=== PATIENT | female | born 1975 | race Caucasian/White ===

== ENCOUNTER 2018-08-01 15:10 | Outpatient (REF) | payer MEDICAID, SELFPAY | END 2018-08-01 15:30 | LOC: NCHCN 15:10 | PROVIDERS: PCP Internal Medicine; Visit Provider Nurse Practitioner Family | DX: N89.8 Other specified noninflammatory disorders of vagina (principal); J02.9 Acute pharyngitis, unspecified | CPT/HCPCS: 87070; 87480; 87510; 87660 ==

== ENCOUNTER 2019-04-29 15:02 | Outpatient (REF) | payer MEDICAID, SELFPAY ==
[2019-04-29 19:50] LABS: TSH 2.58 uIU/mL (0.358-3.74)
[2019-04-29 21:17] LABS: Hemoglobin A1C 6.4 % (4.5-6.2)
[2019-05-01 09:46] LABS: FSH 5.7 mIU/ml; LH 1.4 mIU/ml
== END 2019-04-29 15:22 ==
LOC: NCHCN 15:02
PROVIDERS: PCP Internal Medicine; Visit Provider Nurse Practitioner Family
DX: R73.9 Hyperglycemia, unspecified (principal)
CPT/HCPCS: 83001; 83002; 83036; 84443

== ENCOUNTER 2019-06-06 10:52 | Outpatient (REF) | payer MEDICAID, SELFPAY ==
[2019-06-06 20:06] LABS: HCT 42.1 % (36.0-46.0); HGB 14.3 g/dL (12.0-15.5); Mean Corpuscular Hemoglobin 29.8 pg (27.0-33.0); Mean Corpuscular Volume 87.7 fL (80-95); Mean Platelet Volume 11.4 fL (8.0-11.0); Platelet Count 233 x1000/uL (130-400); RBC Distribution Width 12.4 % (11.7-14.6); White Blood Cell Count 8.37 k/cumm (4.4-10.8)
== END 2019-06-06 11:12 ==
LOC: NCHCN 10:52
PROVIDERS: PCP Internal Medicine; Visit Provider Nurse Practitioner Family
DX: R10.32 Left lower quadrant pain (principal)
CPT/HCPCS: 85027

== ENCOUNTER 2019-08-12 16:38 | Outpatient (REF) | payer MEDICAID, SELFPAY ==
[2019-08-12 19:21] LABS: C-Reactive Protein 0.31 mg/dL (0.0-0.3)
[2019-08-12 19:41] LABS: Hemoglobin A1C 6.5 % (4.5-6.2)
[2019-08-12 21:29] LABS: ESR 18 mm/hr (0-20)
== END 2019-08-12 16:58 ==
LOC: NCHCN 16:38
PROVIDERS: PCP Internal Medicine; Visit Provider Nurse Practitioner Family
DX: R07.89 Other chest pain (principal); R73.03 Prediabetes
CPT/HCPCS: 85652; 83036; 86140

== ENCOUNTER 2020-05-12 12:36 | Outpatient (REF) | payer MEDICAID, SELFPAY ==
[2020-05-12 21:05] LABS: Hemoglobin A1C 6.1 % (3.8-5.6)
== END 2020-05-12 12:56 ==
LOC: NCHCN 12:36
PROVIDERS: PCP Internal Medicine; Visit Provider Nurse Practitioner Family
DX: R73.03 Prediabetes (principal)
CPT/HCPCS: 83036

== ENCOUNTER 2020-11-10 15:29 | Outpatient (REF) | payer MEDICAID, SELFPAY ==
[2020-11-10 21:10] LABS: Hemoglobin A1C 6.4 % (<5.7)
== END 2020-11-10 15:49 ==
LOC: NCHCN 15:29
PROVIDERS: PCP Internal Medicine; Visit Provider Nurse Practitioner Family
DX: R73.03 Prediabetes (principal)
CPT/HCPCS: 83036

== ENCOUNTER 2021-03-14 18:34 | Outpatient (REF) | payer MEDICAID, SELFPAY ==
[2021-03-14 20:01] LABS: Hemoglobin A1C 6.4 % (<5.7)
[2021-03-14 20:23] LABS: Vitamin D 25 Total 14.8 ng/mL (30-100)
== END 2021-03-14 18:35 | disposition home or self-care (01) ==
LOC: NCHCN 18:34
PROVIDERS: PCP Internal Medicine; Visit Provider Nurse Practitioner Family
DX: R73.03 Prediabetes (principal); E55.9 Vitamin D deficiency, unspecified; F41.8 Other specified anxiety disorders
CPT/HCPCS: 82306; 83036

== ENCOUNTER 2021-08-04 09:21 | Outpatient (REF) | payer MEDICAID, SELFPAY ==
[2021-08-04 19:27] LABS: Hemoglobin A1C 6.6 % (<5.7)
[2021-08-04 19:39] LABS: ALT 37 U/L (14-59); AST 21 U/L (15-37); Albumin 3.8 g/dL (3.4-5.0); Alkaline Phosphatase 58 U/L (46-116); Anion Gap 8.6 mmol/L (3-11); BUN 8 mg/dL (7-18); Bilirubin, Total 0.4 mg/dL (0.2-1.0); CO2 27.4 mmol/L (21.0-32.0); Calcium 9.7 mg/dL (8.5-10.1); Chloride 105 mmol/L (98-107); Cholesterol 195 mg/dL (<200); Glucose 149 mg/dL (74-106); HDL Cholesterol 30 mg/dL (40-60); Potassium 4.2 mmol/L (3.5-5.1); Sodium 141 mmol/L (136-145); TSH (W/Ref FT4) 3.23 uIU/mL (0.36-3.74); Total Protein 6.9 g/dL (6.4-8.2); Triglyceride 421 mg/dL (<150)
[2021-08-04 19:54] LABS: Vitamin D 25 Total 31.5 ng/mL (30-100)
[2021-08-04 20:40] LABS: LDL CHOLESTEROL 92 mg/dL (<100)
== END 2021-08-04 09:22 | disposition home or self-care (01) ==
LOC: NCHCN 09:21
PROVIDERS: PCP Internal Medicine; Visit Provider Nurse Practitioner Family
DX: E78.1 Pure hyperglyceridemia (principal); R73.03 Prediabetes; E04.1 Nontoxic single thyroid nodule; E55.9 Vitamin D deficiency, unspecified
CPT/HCPCS: 80053; 80061; 82306; 83721; 83036; 84443

== ENCOUNTER 2021-11-14 17:19 | Outpatient (REF) | payer MEDICAID, SELFPAY ==
[2021-11-16 09:01] LABS: COVID-19 RT-PCR UVMMC Result Negative (Negative)
== END 2021-11-14 17:20 | disposition home or self-care (01) ==
LOC: NCHCN 17:19
PROVIDERS: PCP Internal Medicine; Visit Provider Nurse Practitioner Family
DX: Z20.822 Contact with and (suspected) exposure to COVID-19 (principal); R07.89 Other chest pain
CPT/HCPCS: U0003

== ENCOUNTER 2021-12-06 18:13 | Outpatient (REF) | payer MEDICAID, SELFPAY | END 2021-12-06 18:14 | disposition home or self-care (01) | LOC: NCHCN 18:13 | PROVIDERS: PCP Internal Medicine; Visit Provider Nurse Practitioner Family | DX: R43.9 Unspecified disturbances of smell and taste (principal) | CPT/HCPCS: 87070 ==

== ENCOUNTER 2022-01-09 14:51 | Outpatient (REF) | payer MEDICAID, SELFPAY ==
[2022-01-09 20:21] LABS: Hemoglobin A1C 6.6 % (<5.7)
[2022-01-09 20:27] LABS: TSH 1.86 uIU/mL (0.36-3.74)
== END 2022-01-09 14:52 | disposition home or self-care (01) ==
LOC: NCHCN 14:51
PROVIDERS: PCP Internal Medicine; Visit Provider Nurse Practitioner Family
DX: E04.1 Nontoxic single thyroid nodule (principal); E78.1 Pure hyperglyceridemia; R73.03 Prediabetes
CPT/HCPCS: 83036; 84439; 84443

== ENCOUNTER 2022-02-24 20:00 | Outpatient (REF) | payer MEDICAID, SELFPAY ==
[2022-02-24 19:52] LABS: Calculated LDL 102 mg/dL (<100); Cholesterol 196 mg/dL (<200); HDL Cholesterol 31 mg/dL (40-60); Triglyceride 319 mg/dL (<150)
[2022-02-27 06:24] LABS: Vitamin D 25 Total 32.7 ng/mL (30-100)
== END 2022-02-24 20:01 | disposition home or self-care (01) ==
LOC: NCHCN 20:00
PROVIDERS: PCP Internal Medicine; Visit Provider Nurse Practitioner Family
DX: E55.9 Vitamin D deficiency, unspecified (principal); E78.1 Pure hyperglyceridemia
CPT/HCPCS: 80061; 82306

== ENCOUNTER 2022-11-21 17:55 | Outpatient (REF) | payer MEDICAID, SELFPAY ==
[2022-11-21 19:35] LABS: COMMENT (LAB VIEW ONLY) 192.18 mg/dL; Microalb ug/mg Crea 9.2 ug/mg Cr
[2022-11-21 21:12] LABS: Bilirubin Negative (Negative); Blood Negative (Negative); Clarity Cloudy (Clear); Glucose Negative (Negative); Ketones Negative (Negative); Leukocyte Esterase Trace (Negative); Nitrite Negative (Negative); Specific Gravity >= 1.030 (1.005-1.025); Urobilinogen 0.2 EU/dL (Up TO 0.2); pH 5.5 (5-8)
[2022-11-21 21:14] LABS: Bacteria Many HPF (Negative)
[2022-11-21 21:15] LABS: C & S Indicated? Yes; Crystals Many Amorphous HPF (Negative)
== END 2022-11-21 17:56 | disposition home or self-care (01) ==
LOC: NCHCN 17:55
PROVIDERS: PCP Internal Medicine; Visit Provider Nurse Practitioner Family
DX: R80.9 Proteinuria, unspecified (principal)
CPT/HCPCS: 81003; 81015; 82043; 82570; 87086

== ENCOUNTER 2023-02-01 16:39 | Outpatient (REF) | payer MEDICAID, SELFPAY | END 2023-02-01 16:40 | disposition home or self-care (01) | LOC: NCHCN 16:39 | PROVIDERS: PCP Internal Medicine; Visit Provider Nurse Practitioner Family | DX: J02.9 Acute pharyngitis, unspecified (principal) | CPT/HCPCS: 87070 ==

== ENCOUNTER 2023-02-06 14:08 | Outpatient (REF) | payer MEDICAID, SELFPAY ==
[2023-02-06 12:10] LABS: Abs Immature Grans 0.06 10^3/uL (0.0-0.06); Absolute Eosinophil Count 0.12 10^3/uL (0.0-0.7); Absolute Monocyte Count 0.76 10^3/uL (0.1-0.8); Basophils % 0.3; HCT 42.7 % (36.0-46.0); HGB 14.4 g/dL (11.2-15.7); Immature Grans % 0.5; Lymphocytes % 16.3; MCH 29.5 pg (27.0-33.0); MCHC 33.7 % (32.0-36.0); MCV 88 fL (80-95); MPV 10.5 fL (8.0-11.0); Monocytes % 6.6; Neutrophils % 75.3; Platelet Count 206 10^3/uL (130-400); RBC 4.88 10^6/uL (3.93-5.22); RDW 12.6 % (11.7-14.6); RDW-SD 40.1 fL
[2023-02-06 12:17] LABS: Absolute Basophil Count 0.03 10^3/uL (0.0-0.2); Absolute Lymphocyte Count 1.87 10^3/uL (1.2-3.4); Absolute Neutrophil Count 8.66 10^3/uL (1.2-6.7)
[2023-02-07 11:19] LABS: IgE <2 IU/mL (<158)
[2023-02-08 12:28] LABS: Aspergillus Fumigatus IgE <0.35 kU/L; Bermuda Grass IgE <0.35 kU/L; Canary Feathers IgE <0.35 kU/L; Candida Albicans (Monilia),IgE <0.35 kU/L; Cat Epithelium IgE <0.35 kU/L; Cedar, IgE <0.35 kU/L; Chicken Feathers IgE <0.35 kU/L; Cockroach IgE <0.35 kU/L; D Farinae IgE <0.35 kU/L; D Pteronyssinus IgE <0.35 kU/L; Dog Dander IgE <0.35 kU/L; False Ragweed, IgE <0.35 kU/L; Finch Feathers, IgE <0.35 kU/L; Short Ragweed IgE <0.35 kU/L; Silver Birch IgE <0.35 kU/L
[2023-02-08 12:43] LABS: Douglas Fir, IgE <0.35 kU/L; Spruce, IgE <0.35 kU/L
[2023-02-15 08:57] LABS: Parrot Australian Feathers IgE <0.10 kU/L
== END 2023-02-06 14:09 | disposition home or self-care (01) ==
LOC: LBN 14:08
PROVIDERS: PCP Internal Medicine; Visit Provider Physician Assistant Surgical
DX: J45.50 Severe persistent asthma, uncomplicated (principal); Z01.82 Encounter for allergy testing
CPT/HCPCS: 86003; 82785; 84307; 85025; 86592

== ENCOUNTER 2023-03-27 18:49 | Outpatient (REF) | payer MEDICAID, SELFPAY ==
[2023-03-27 19:49] LABS: ALT 38 U/L (14-59); AST 24 U/L (15-37); Alkaline Phosphatase 59 U/L (46-116); Anion Gap 10.7 mmol/L (3-11); BUN 8 mg/dL (7-18); Bilirubin, Total 0.3 mg/dL (0.2-1.0); CO2 25.3 mmol/L (21.0-32.0); Calcium 9.1 mg/dL (8.5-10.1); Calculated LDL 113 mg/dL (<100); Chloride 105 mmol/L (98-107); Cholesterol 209 mg/dL (<200); Estimated GFR 70.36 (mL/min/1.73m2); Glucose 148 mg/dL (74-106); HDL Cholesterol 37 mg/dL (40-60); Potassium 3.9 mmol/L (3.5-5.1); Sodium 141 mmol/L (136-145); TSH 1.93 uIU/mL (0.36-3.74); Total Protein 7.4 g/dL (6.4-8.2); Triglyceride 295 mg/dL (<150)
== END 2023-03-27 18:50 | disposition home or self-care (01) ==
LOC: NCHCN 18:49
PROVIDERS: PCP Internal Medicine; Visit Provider Nurse Practitioner Family
DX: E04.1 Nontoxic single thyroid nodule (principal); E11.65 Type 2 diabetes mellitus with hyperglycemia; E78.1 Pure hyperglyceridemia; K76.0 Fatty (change of) liver, not elsewhere classified
CPT/HCPCS: 80053; 80061; 84443

== ENCOUNTER 2023-09-04 18:32 | Outpatient (REF) | payer MEDICAID, SELFPAY ==
[2023-09-04 19:26] LABS: Anion Gap 8.3 mmol/L (3-11); BUN 13 mg/dL (7-18); CO2 25.7 mmol/L (21.0-32.0); CREATININE 0.9 mg/dL (0.55-1.02); Calcium 9.9 mg/dL (8.5-10.1); Chloride 102 mmol/L (98-107); Estimated GFR 79.85 (mL/min/1.73m2); Glucose 162 mg/dL (74-106); Sodium 136 mmol/L (136-145)
== END 2023-09-04 18:33 | disposition home or self-care (01) ==
LOC: NCHCN 18:32
PROVIDERS: PCP Internal Medicine; Visit Provider Nurse Practitioner Family
DX: E11.65 Type 2 diabetes mellitus with hyperglycemia (principal)
CPT/HCPCS: 80048

== ENCOUNTER 2024-04-08 16:44 | Outpatient (REF) | payer MEDICAID, SELFPAY ==
[2024-04-08 18:47] LABS: Abs Immature Grans 0.06 10^3/uL (0.0-0.06); Absolute Basophil Count 0.06 10^3/uL (0.0-0.2); Absolute Lymphocyte Count 2.23 10^3/uL (1.2-3.4); Absolute Monocyte Count 0.66 10^3/uL (0.1-0.8); Absolute Neutrophil Count 6.48 10^3/uL (1.2-6.7); Basophils % 0.6 %; HGB 14.9 g/dL (11.2-15.7); Immature Grans % 0.6 %; Lymphocytes % 23.3 %; MCH 29.2 pg (27.0-33.0); MCHC 33.1 % (32.0-36.0); MCV 88 fL (80-95); MPV 10.6 fL (8.0-11.0); Monocytes % 6.9 %; Neutrophils % 67.6 %; Platelet Count 224 10^3/uL (130-400); RBC 5.11 10^6/uL (3.93-5.22); RDW-SD 38.9 fL; WBC 9.59 10^3/uL (4.4-10.8)
[2024-04-08 19:35] LABS: ALT 40 U/L (14-59); AST 19 U/L (15-37); Albumin 3.9 g/dL (3.4-5.0); Alkaline Phosphatase 65 U/L (46-116); Anion Gap 13.1 mmol/L (3-11); BUN 9 mg/dL (7-18); Bilirubin, Total 0.4 mg/dL (0.2-1.0); CO2 23.9 mmol/L (21.0-32.0); Calcium 9.3 mg/dL (8.5-10.1); Chloride 101 mmol/L (98-107); Estimated GFR 69.93 (mL/min/1.73m2); Glucose 270 mg/dL (74-106); Potassium 3.6 mmol/L (3.5-5.1); Sodium 138 mmol/L (136-145); TSH (W/Ref FT4) 2.56 uIU/mL (0.36-3.74); Total Protein 7.4 g/dL (6.4-8.2)
[2024-04-08 19:54] LABS: Vitamin D 25 Total 24.6 ng/mL (30-100)
== END 2024-04-08 16:45 | disposition home or self-care (01) ==
LOC: NCHCN 16:44
PROVIDERS: PCP Internal Medicine; Visit Provider Nurse Practitioner Family
DX: E11.9 Type 2 diabetes mellitus without complications (principal); R53.83 Other fatigue; E55.9 Vitamin D deficiency, unspecified
CPT/HCPCS: 80053; 82306; 84443; 85025

== ENCOUNTER 2024-08-11 14:05 | Outpatient (REF) | payer MEDICAID, SELFPAY ==
[2024-08-11 19:19] LABS: ESR 14 mm/hr (0-20)
[2024-08-11 19:40] LABS: Cholesterol 200 mg/dL (<200); HDL Cholesterol 33 mg/dL (40-60); Triglyceride 558 mg/dL (<150)
[2024-08-11 19:51] LABS: LDL CHOLESTEROL 78 mg/dL (<100)
[2024-08-11 20:06] LABS: Uric Acid 4.6 mg/dL (2.6-6.0)
[2024-08-12 18:09] LABS: Rheumatoid Factor <8.6 IU/mL (<12.0)
[2024-08-13 11:44] LABS: ANA Interpretation Negative (Negative)
== END 2024-08-11 14:06 | disposition home or self-care (01) ==
LOC: NCHCN 14:05
PROVIDERS: PCP Internal Medicine; Visit Provider Nurse Practitioner Family
DX: E78.2 Mixed hyperlipidemia (principal); M25.48 Effusion, other site
CPT/HCPCS: 80061; 83721; 85652; 84550; 86038; 86431

== ENCOUNTER 2024-09-30 09:30 | Outpatient (REF) | payer MEDICAID, SELFPAY ==
[2024-09-30 20:33] LABS: ALT 52 U/L (14-59); AST 29 U/L (15-37); Albumin 3.8 g/dL (3.4-5.0); Alkaline Phosphatase 64 U/L (46-116); Anion Gap 10.9 mmol/L (3-11); BUN 6 mg/dL (7-18); Bilirubin, Total 0.43 mg/dL (0.2-1.0); CO2 25.1 mmol/L (21.0-32.0); CREATININE 0.9 mg/dL (0.55-1.02); Calcium 9.4 mg/dL (8.5-10.1); Chloride 104 mmol/L (98-107); Cholesterol 226 mg/dL (<200); Estimated GFR 79.35 (mL/min/1.73m2); Glucose 188 mg/dL (74-106); HDL Cholesterol 38 mg/dL (40-60); Sodium 140 mmol/L (136-145); Total Protein 7.5 g/dL (6.4-8.2); Triglyceride 532 mg/dL (<150); Vitamin D 25 Total 29.2 ng/mL (30-100)
[2024-09-30 20:59] LABS: LDL CHOLESTEROL 108 mg/dL (<100)
== END 2024-09-30 09:31 | disposition home or self-care (01) ==
LOC: NCHCN 09:30
PROVIDERS: PCP Internal Medicine; Visit Provider Nurse Practitioner Family
DX: E78.2 Mixed hyperlipidemia (principal); E55.9 Vitamin D deficiency, unspecified
CPT/HCPCS: 80053; 80061; 82306; 83721

== ENCOUNTER 2025-01-20 15:24 | Outpatient (REF) | payer MEDICAID, SELFPAY | END 2025-01-20 15:25 | disposition home or self-care (01) | LOC: NCHCN 15:24 | PROVIDERS: PCP Internal Medicine; Visit Provider Nurse Practitioner Family | DX: J02.9 Acute pharyngitis, unspecified (principal) | CPT/HCPCS: 87070 ==

== ENCOUNTER 2025-04-17 13:12 | Outpatient (REF) | payer MEDICAID, SELFPAY ==
[2025-04-17 19:40] LABS: Hemoglobin A1C 7.6 % (<5.7)
[2025-04-17 20:13] LABS: ALT 38 U/L (14-59); AST 30 U/L (15-37); Albumin 3.7 g/dL (3.4-5.0); Alkaline Phosphatase 55 U/L (46-116); Anion Gap 10.7 mmol/L (3-11); BUN 11 mg/dL (7-18); Bilirubin, Total 0.4 mg/dL (0.2-1.0); CO2 23.3 mmol/L (21.0-32.0); Calcium 8.7 mg/dL (8.5-10.1); Calculated LDL 99 mg/dL (<100); Chloride 104 mmol/L (98-107); Cholesterol 200 mg/dL (<200); Estimated GFR 69.49 (mL/min/1.73m2); Glucose 207 mg/dL (74-106); HDL Cholesterol 33 mg/dL (>or=50); Sodium 138 mmol/L (136-145); Total Protein 7.1 g/dL (6.4-8.2); Triglyceride 344 mg/dL (<150); Vitamin D 25 Total 44 ng/mL (30-100)
== END 2025-04-17 13:13 | disposition home or self-care (01) ==
LOC: NCHCN 13:12
PROVIDERS: PCP Internal Medicine; Visit Provider Nurse Practitioner Family
DX: E55.9 Vitamin D deficiency, unspecified (principal); E11.9 Type 2 diabetes mellitus without complications; E78.2 Mixed hyperlipidemia
CPT/HCPCS: 80053; 80061; 82306; 83036

== ENCOUNTER 2025-08-03 15:34 | Outpatient (REF) | payer MEDICAID, SELFPAY ==
[2025-08-03 19:45] LABS: Amylase 68 U/L (25-115); Lipase 95 U/L (<78)
== END 2025-08-03 15:35 | disposition home or self-care (01) ==
LOC: NCHCN 15:34
PROVIDERS: PCP Internal Medicine; Visit Provider Nurse Practitioner Family
DX: R10.13 Epigastric pain (principal)
CPT/HCPCS: 83690; 82150

== ENCOUNTER 2025-08-06 16:12 | Outpatient (REF) | payer MEDICAID, SELFPAY ==
[2025-08-06 20:22] LABS: Cholesterol 216 mg/dL (<200); HDL Cholesterol 31 mg/dL (>or=50); Triglyceride 743 mg/dL (<150)
[2025-08-06 20:34] LABS: LDL CHOLESTEROL 87 mg/dL (<100)
[2025-08-06 21:15] LABS: Amylase 51 U/L (25-115); Lipase 54 U/L (<78)
== END 2025-08-06 16:13 | disposition home or self-care (01) ==
LOC: NCHCN 16:12
PROVIDERS: PCP Internal Medicine; Visit Provider Nurse Practitioner Family
DX: R74.8 Abnormal levels of other serum enzymes (principal); E78.2 Mixed hyperlipidemia
CPT/HCPCS: 80061; 83690; 83721; 82150

== ENCOUNTER 2025-08-10 19:24 | Outpatient (REF) | payer MEDICAID, SELFPAY ==
[2025-08-10 20:09] LABS: COMMENT (LAB VIEW ONLY) 221.53 mg/dL; Microalb ug/mg Crea 5.4 ug/mg Cr
[2025-08-10 20:12] LABS: C & S Indicated? No; RBC Negative HPF (0-2); WBC Negative HPF (0-5)
== END 2025-08-10 19:25 | disposition home or self-care (01) ==
LOC: LBN 19:24
PROVIDERS: PCP Internal Medicine; Visit Provider Nurse Practitioner Family
DX: R30.0 Dysuria (principal)
CPT/HCPCS: 81015; 82043; 82570

== ENCOUNTER 2025-08-13 19:34 | Outpatient (REF) | payer MEDICAID, SELFPAY ==
[2025-08-13 19:58] LABS: Cholesterol 204 mg/dL (<200); HDL Cholesterol 34 mg/dL (>or=50); Triglyceride 562 mg/dL (<150)
[2025-08-13 20:20] LABS: LDL CHOLESTEROL 78 mg/dL (<100)
== END 2025-08-13 19:35 | disposition home or self-care (01) ==
LOC: NCHCN 19:34
PROVIDERS: PCP Internal Medicine; Visit Provider Nurse Practitioner Family
DX: E78.2 Mixed hyperlipidemia (principal)
CPT/HCPCS: 80061; 83721

== ENCOUNTER 2025-09-09 15:10 | Outpatient (REF) | payer MEDICAID, SELFPAY ==
[2025-09-09 21:57] LABS: ALT 40 U/L (14-59); AST 26 U/L (15-37); Albumin 3.7 g/dL (3.4-5.0); Alkaline Phosphatase 61 U/L (46-116); Bilirubin, Direct 0.1 mg/dL (0.0-0.2); Bilirubin, Total 0.3 mg/dL (0.2-1.0); Total Protein 7.1 g/dL (6.4-8.2)
[2025-09-10 19:11] LABS: Hepatitis A Antibody IgM Negative (Negative); Hepatitis C Ab w Rflx HCV PCR Negative (Negative)
== END 2025-09-09 15:11 | disposition home or self-care (01) ==
LOC: NCHCN 15:10
PROVIDERS: PCP Internal Medicine; Visit Provider Nurse Practitioner Family
DX: R16.0 Hepatomegaly, not elsewhere classified (principal)
CPT/HCPCS: 80076; 86704; 86709; 86803; 87340